=== PATIENT | female | born 1975 | race Asian ===

== ENCOUNTER 2018-03-05 19:06 | Inpatient (IN) | payer OTHER ==
[~2018-03-05] VITALS: Ht 154.9 cm; Wt 52.2 kg
[2018-03-05 23:11] LABS: T3 TOTAL 1.07 ng/mL
[2018-03-05 23:42] VITALS: BP 99/56
[2018-03-05 23:48] VITALS: Ht 154.9 cm; Wt 52.2 kg
[2018-03-05 23:48] LABS: MAGNESIUM 2.3 mg/dL (1.8-2.4)
[2018-03-06 05:26] VITALS: BP 96/63
[2018-03-06 07:05] LABS: BASOPHIL % 0.8 % (0-2); PLATELET COUNT 207 x10^3mcL (130-400); RED CELL DISTRIBUTION WIDTH 13.7 % (11.5-14.5)
[2018-03-06 07:26] LABS: CARBON DIOXIDE 24.1 mmol/L (21-32); CHLORIDE SERUM 111 mmol/L (98-107); GLUCOSE SERUM 89 mg/dL (74-106); POTASSIUM SERUM 3.7 mmol/L (3.5-5.1); SODIUM SERUM 140 mmol/L (136-145)
[2018-03-06 07:27] LABS: CALCIUM 7.7 mg/dL (8.5-10.1); CREATININE SERUM 0.6 mg/dL (0.6-1.0); GFR1 > 60 mL/min
[2018-03-06 08:55] VITALS: BP 90/56
[2018-03-06 12:49] LABS: FREE T4 0.85 ng/dL (0.76-1.46); FREE THYROXINE INDEX 1.8 ug/dL (1.4-4.5)
[2018-03-06 13:16] VITALS: BP 94/53
== END 2018-03-06 14:30 | disposition home or self-care (01) | DRG 395 ==
LOC: ED 19:06 → DU 21:59
PROVIDERS: Family Medicine; Internal Medicine Gastroenterology
PROC: 0DC18ZZ Extirpation of Matter from Upper Esophagus, Via Natural or Artificial Opening Endoscopic (ICD-10-PCS; principal; 2018-03-06 08:30)
DX: T18.128A Food in esophagus causing other injury, initial encounter (principal); E78.5 Hyperlipidemia, unspecified; Z68.23 Body mass index [BMI] 23.0-23.9, adult; W26.8XXA Contact with other sharp object(s), not elsewhere classified, initial encounter; Y92.001 Dining room of unspecified non-institutional (private) residence as the place of occurrence of the external cause
CPT/HCPCS: 43235; 83880; 84439; J1885; J2250; J2704; J3010; J7030; J7120